=== PATIENT | female | born 1970 | race Caucasian/White ===

== ENCOUNTER 2019-04-06 10:36 | Day surgery (SDC) | payer BC ==
[~2019-04-06 10:36] MED LIST: Acetaminophen TAB* 325 MG PO ONE; Buffered Lidocaine 1% SYRIN* 1 ML/SYRINGE INTRADERM ONE; Lactated Ringers 1000 ML Bag* 1,000 ML IV SCH; Levalbuterol 0.63MG/3ML NEB* UNIT OF USE INH PRN
[2019-04-06] MEDS ORDERED: Levalbuterol 0.63MG/3ML NEB* UNIT OF USE INH ONE (10:55)
[2019-04-06] MEDS ORDERED: Buffered Lidocaine 1% SYRIN* 1 ML/SYRINGE INTRADERM ONE (10:55)
[2019-04-06] MEDS ORDERED: Acetaminophen TAB* 325 MG ONE ×2 (10:55→15:43)
[2019-04-06] MEDS ORDERED: ceFAZolin 2 GM PREMIX in ORs 2 GM/50 ML BAG IVPB ONE (11:07)
[2019-04-06] MEDS ORDERED: Rocuronium* 10 MG/ML VIAL ONE ×2 (12:25→13:31)
[2019-04-06] MEDS ORDERED: Lidocaine 2% PF * 5 ML VIAL ONE (12:25)
[2019-04-06] MEDS ORDERED: fentaNYL* 50 MCG/ML 2 ML VIAL (100 MCG VIAL) ONE (12:25)
[2019-04-06] MEDS ORDERED: Propofol* 10 MG/ML 20 ML BTL ONE (12:25)
[2019-04-06] MEDS ORDERED: Midazolam* 1 MG/ML 2 ML VIAL (2 MG) ONE (12:25)
[2019-04-06] MEDS ORDERED: Bupivacaine 0.25% EPI 200,000* 30 ML SDV ONE (12:34)
[2019-04-06] MEDS ORDERED: Dexamethasone IV* 4 MG/ML 1 ML (4 MG) ONE (13:14)
[2019-04-06] MEDS ORDERED: Phenylephrine 10 MG/ML VIAL* 1 ML VIAL ONE (13:20)
[2019-04-06] MEDS ORDERED: Sugammadex * 200 MG/2 ML VIAL IV PUSH ONE (13:31)
[2019-04-06] MEDS ORDERED: Metoclopramide IV* 5 MG/ML 2 ML VIAL ONE (13:56)
[2019-04-06] MEDS ORDERED: Ondansetron INJ* 2 MG/ML VIAL ONE (13:56)
[2019-04-06] MEDS ORDERED: Ketorolac INJ* 30 MG/ML 1 ML VIAL ONE (13:56)
[2019-04-06] MEDS ORDERED: DiMENhydriNATE IV* 50 MG/ML VIAL IV PUSH PRN (14:24)
[2019-04-06] MEDS ORDERED: fentaNYL* 50 MCG/ML 2 ML VIAL (100 MCG VIAL) IV PRN (14:24)
[2019-04-06] MEDS ORDERED: oxyCODONE TAB* 5 MG TAB PO PRN (14:24)
[2019-04-06] MEDS ORDERED: Acetaminophen TAB* 325 MG PO PRN (14:24)
[2019-04-06] MEDS ORDERED: Naloxone* 0.4 MG/ML 1 ML VIAL IV PRN (14:24)
[2019-04-06] MEDS ORDERED: DiMENhydriNATE IV* 50 MG/ML VIAL ONE (14:34)
[2019-04-06 15:56] VITALS: BP 127/80
--- NOTE | 2019-04-07 01:46 | OP ---
CC: Cate Walters NP, [place] * DATE OF OPERATION: 04/06/19 - [facility] DATE OF : 68 SURGEON: Maynor Hathaway MD. [employer] MACH[employer] OPERATOR: Debo Wen NP. ANESTHESIOLOGIST: Neelam Samaniego DO. ANESTHESIA: General endotracheal. PRE-OPERATIVE DIAGNOSIS: Biliary dyskinesia. POST-OPERATIVE DIAGNOSIS: Biliary dyskinesia. OPERATIVE PROCEDURE: Laparoscopic cholecystectomy. ESTIMATED BLOOD LOSS: Minimal. IV FLUIDS: Crystalloid. SPECIMEN: Gallbladder. DRAINS: None. COMPLICATIONS: None. COUNTS: The instrument, needle, and sponge counts were correct. DESCRIPTION OF PROCEDURE: The patient was brought to the operating room and placed on the table supine. Sequential compression devices were placed on both lower extremities. General anesthesia was administered. Appropriate intravenous antibiotics were administered. After sterile prep and drape, time- out was performed. Local anesthetic was infiltrated into the skin and soft tissue prior to making each incision. Entry into the abdomen was through a transumbilical vertical incision using an open technique and a 5-mm trocar was placed. Carbon dioxide was insufflated to a pressure of 15 mmHg. Under direct visualization, 5-mm trocars were placed in the subxiphoid position and 2 in the right upper quadrant. The gallbladder fundus was identified. There were no acute inflammatory changes. No chronic appearing changes. The fundus was grasped, the gallbladder was retracted cephalad. The infundibulum was grasped and the gallbladder was manipulated while the peritoneum was dissected free from the area of the infundibulum. Medial and lateral dissection was performed in order to dissect out the cystic duct and the cystic artery. Each was doubly clipped and divided. The gallbladder then was freed from attachments to the liver using cautery and staying in an avascular plane. Once the gallbladder was freed, it was placed into an endoscopic retrieval bag and retrieved through the umbilical site. Clips were noted to be intact. Hemostasis was excellent. Lavage with sterile saline was reported to be clear. Ports were removed. Carbon dioxide was released. The umbilical site was closed with 0 Vicryl to approximate the fascia. The skin incisions were closed with 4-0 Monocryl in a subcuticular fashion. Steri-Strips were applied. The patient tolerated the procedure well and was extubated and transferred to Recovery in stable condition. [id number]/[facility] #: [id number] [place]
== END 2019-04-06 16:08 | disposition home or self-care (01) ==
LOC: OR 10:36
PROVIDERS: ATTEND Surgery
DX: K81.1 Chronic cholecystitis (principal); E10.9 Type 1 diabetes mellitus without complications; Z79.4 Long term (current) use of insulin; I10 Essential (primary) hypertension; J45.909 Unspecified asthma, uncomplicated; E03.9 Hypothyroidism, unspecified
CPT/HCPCS: 88304; A9270-GY; J0690; J1100; J1240; J1885; J2250; J2405; J2704; J2765; J3010